=== PATIENT | male | born 1985 | race Caucasian/White ===

== ENCOUNTER 2021-10-15 11:00 | Emergency (ER) | payer OTHER ==
[2021-10-15 11:23] VITALS: BP 142/83; PULSE 78; TEMP 98.2; BMI 22.0
[2021-10-15] MEDS ORDERED: CEPHALEXIN MONOHYDRATE 500 MG CAPSULE (UD) PO ONE (13:47)
[2021-10-15] MEDS ORDERED: CEPHALEXIN MONOHYDRATE 500 MG CAPSULE (UD) ONE (13:48)
== END 2021-10-15 14:04 | disposition home or self-care (01) ==
LOC: JERFT 11:00
DX: S61.319A Laceration without foreign body of unspecified finger with damage to nail, initial encounter (principal); W27.4XXA Contact with kitchen utensil, initial encounter; Y93.G1 Activity, food preparation and clean up
CPT/HCPCS: 73140-TC-LT-FY; 99283-25

== ENCOUNTER 2021-10-17 15:53 | Emergency (ER) | payer OTHER ==
[2021-10-17 16:06] VITALS: BP 135/73; PULSE 76; TEMP 97.8; BMI 22.0
[2021-10-17] MEDS ORDERED: IBUPROFEN 600 MG TABLET (FP) PO ONE ×2 (16:53→17:01)
== END 2021-10-17 17:23 | disposition home or self-care (01) ==
LOC: JERFT 15:53
DX: Z48.00 Encounter for change or removal of nonsurgical wound dressing (principal)
CPT/HCPCS: 99281-25